=== PATIENT | male | born 1965 | race Two or more races ===

== ENCOUNTER 2023-07-25 19:38 | Emergency (ER) | payer SELFPAY ==
[~2023-07-25] VITALS: Ht 175.3 cm; Wt 97.0 kg
[2023-07-25 19:47] VITALS: TEMP 98.4; O2SAT 96
[2023-07-25 20:38] LABS: BASOPHILS % 0.3 % (0.0-2.0); EOSINOPHILS % 0.9 % (0.0-5.0); HEMATOCRIT. 44.6 % (42.0-52.0); HEMOGLOBIN. 15.1 g/dL (14.0-18.0); LYMPHOCYTES % 15.6 % (20.0-50.0); MEAN CORPUSCULAR HEMOGLOBIN 31.7 pg (28.0-32.0); MEAN CORPUSCULAR HGB CONC 33.8 g/dL (31.0-37.0); MEAN CORPUSCULAR VOLUME 93.8 fL (80.0-94.0); MEAN PLATELET VOLUME 8.7 fl (7.4-10.4); MONOCYTES % 6.4 % (2.0-8.0); NEUTROPHILS % 76.8 % (40.0-76.0); PLATELET 199 x1000/uL (130-400); RED BLOOD CELL COUNT 4.76 mill/uL (4.7-6.1); RED CELL DISTRIBUTION WIDTH 13.1 % (11.6-14.6); WHITE BLOOD COUNT 9.3 x1000/uL (4.5-11.0)
[2023-07-25 20:56] LABS: ALANINE AMINOTRANSFERASE 109 IU/L (10-49); ALBUMIN 4.1 g/dL (3.2-4.8); ASPARTATE AMINOTRANSFERASE 61 IU/L (<34); BILIRUBIN TOTAL 0.7 mg/dL (0.1-1.0); CARBON DIOXIDE 23 mEq/L (21-32); CHLORIDE 102 mEq/L (98-107); CREATINE KINASE 124 IU/L (46-171); CREATININE 0.9 mg/dL (0.6-1.3); GLUCOSE 370 mg/dL (70-105); POTASSIUM 3.9 mEq/L (3.5-5.1); PROTEIN TOTAL 7.6 g/dL (6.0-8.3); SODIUM 136 mEq/L (136-145); TROPONIN I HIGH SENSITIVITY 6 ng/L (3.0-53); UREA NITROGEN BLOOD 16 mg/dL (9-23)
[2023-07-25 21:06] LABS: ETHANOL BLOOD < 10 mg/dL (<10)
[2023-07-25] MEDS ORDERED: SODIUM CHLORIDE 0.9% 1,000 ML IV ONE (21:45)
[2023-07-25] MEDS ORDERED: MECLIZINE 25MG TABLET PO ONE (21:45)
[2023-07-25 23:30] LABS: TROPONIN I HIGH SENSITIVITY 5 ng/L (3.0-53)
[2023-07-25] MEDS ORDERED: IOHEXOL-350 100 ML BOTTLE ONE (23:58)
[2023-07-26] MEDS ORDERED: MECL-299 MT (01:15)
[2023-07-26 01:35] VITALS: BP 122/74; PULSE 64; RESP 18
== END 2023-07-26 01:37 | disposition home or self-care (01) ==
LOC: ER 19:38
DX: R42 Dizziness and giddiness (principal); R11.0 Nausea; E11.9 Type 2 diabetes mellitus without complications
CPT/HCPCS: 80053; 82010; 80320; 82550; 82962; 83605; 85025; 84484; 36415; 71045; 70496; 70498; 70450; 96360; 99285; 82803; Q9967; J8597; J7030; G0480

== ENCOUNTER → 2025-02-27 | Outpatient (CLI) | payer BC ==
[~2025-02-27] MED LIST: MECL-299 MT
[2025-02-27 08:40] LABS: CLARITY URINE CLEAR (CLEAR); COLOR URINE YELLOW (YELLOW); GLUCOSE URINE 3+ (NEGATIVE); KETONES URINE TRACE (NEGATIVE); LEUKOCYTE ESTERASE URINE NEGATIVE (NEGATIVE); NITRITE URINE NEGATIVE (NEGATIVE); OCCULT BLOOD URINE NEGATIVE (NEGATIVE); PH URINE 5.5 (4.5-8.0); PROTEIN URINE NEGATIVE (NEGATIVE); SPECIFIC GRAVITY URINE 1.043 (1.005-1.030); UROBILINOGEN URINE 0.2 E.U./dL (0.2-1.0)
[2025-02-27 08:42] LABS: BASOPHILS % 0.4 % (0.0-2.0); EOSINOPHILS % 1.6 % (0.0-5.0); HEMATOCRIT. 44.7 % (42.0-52.0); HEMOGLOBIN. 15.0 g/dL (14.0-18.0); LYMPHOCYTES % 26.3 % (20.0-50.0); MEAN PLATELET VOLUME 8.4 fl (7.4-10.4); MONOCYTES % 7.3 % (2.0-8.0); NEUTROPHILS % 64.4 % (40.0-76.0); PLATELET 207 x1000/uL (130-400); RED BLOOD CELL COUNT 4.79 mill/uL (4.7-6.1); RED CELL DISTRIBUTION WIDTH 13.1 % (11.6-14.6)
[2025-02-27 09:00] LABS: BACTERIA URINE FEW; RBC URINE 0-2 /hpf (0-2); YEAST URINE NONE SEEN
[2025-02-27 09:01] LABS: SQUAMOUS EPITHELIAL CELL URINE FEW /lpf (RARE/1+)
[2025-02-27 09:36] LABS: CREATININE 0.9 mg/dL (0.6-1.3); TRIGLYCERIDE 131 mg/dL (0-150); UREA NITROGEN BLOOD 25 mg/dL (9-23)
[2025-02-27 09:37] LABS: LDL CHOLESTEROL 83 mg/dL (5-100)
[2025-02-27 09:38] LABS: ASPARTATE AMINOTRANSFERASE 23 IU/L (<34); BILIRUBIN TOTAL 0.6 mg/dL (0.1-1.0); PROTEIN TOTAL 7.2 g/dL (6.0-8.3)
[2025-02-27 09:39] LABS: T4 FREE 1.40 ng/dL (0.89-1.76)
[2025-02-28 06:17] LABS: PROSTATE SPECIFIC AG TOTAL 0.6 ng/mL (0.0-4.0); VITAMIN D 25-OH 13.7 ng/mL (30.0-100.0)
== END | disposition home or self-care (01) ==
LOC: LAB 07:44
DX: E11.9 Type 2 diabetes mellitus without complications (principal); E55.9 Vitamin D deficiency, unspecified; E78.5 Hyperlipidemia, unspecified; E66.9 Obesity, unspecified; Z12.5 Encounter for screening for malignant neoplasm of prostate; Z13.29 Encounter for screening for other suspected endocrine disorder
CPT/HCPCS: 36415; 80053; 80061; 81003; 82306; 82570; 83036; 84153; 84156; 84439; 84443; 84681; 85025